=== PATIENT | male | born 2000 | race Caucasian/White ===

== ENCOUNTER 2020-09-04 16:21 | Emergency (ER) | payer OTHER, SELFPAY ==
[2020-09-04 16:23] VITALS: BP 118/94; PULSE 64; RESP 18; TEMP 36.5; O2SAT 98
--- NOTE | 2020-09-04 16:45 | ED.EYEPROB ---
HPI - Eye Problem General Chief complaint: Eye Problems Stated complaint: Possible scratched eye Time Seen by Provider: 09/04/20 16:29 History of Present Illness HPI Narrative: Patient is a 20-year-old male who presents ER with right eye pain. He was lowering some blinds when a plastic piece came off of the rope and struck him in the right eye. He has had increased pain. Blurred vision. Some tearing. He does not wear glasses or contacts. Related Data Allergies Allergy/AdvReac Type Severity Reaction Status Date / Time codeine Allergy Unknown Hallucinati Unverified 09/04/20 16:31 ng Review of Systems Eyes: Comments: Blurred vision, right eye pain with injection Neurologic: Denies syncope and Denies headache(s) PMFSH Past Medical History Medical History (Updated 09/04/20 @ 22:52 by Usman Burk MD) Healthy adult male Surgical History Surgical History (Updated 09/04/20 @ 22:52 by Usman Burk MD) H/O skin graft Exam Narrative: Exam Narrative: GENERAL: Well-appearing, well-nourished, and in no acute distress. HEAD: Normocephalic, atraumatic. EYES: PERRL and EOMI. right I viewed with fluorescein staining and magnification. There is a corneal abrasion at the 7:00 and 6 o'clock position. 7 o'clock position is about as long as a third of the cornea. No evidence of perforation of the globe. Sclera injected. Normal lids. No foreign body noted. Magnification used with ophthalmoscope. EXTREMITIES: Normal range of motion. No edema. SKIN: Warm, dry, no rash. NEURO: Alert and oriented x3. PSYCH: Normal mood and affect. Course Course Emergency Course: Educate about treatment plan. Patient verbalized understanding. Discharge home. Vital Signs Vital signs: Vital Signs Temperature 97.7 F 09/04/20 16:23 Pulse Rate 64 09/04/20 16:23 Respiratory Rate 18 09/04/20 16:23 Blood Pressure 118/94 H 09/04/20 16:23 Pulse Oximetry 98 09/04/20 16:23 Temperature 97.7 F 09/04/20 16:23 Pulse Rate 64 09/04/20 16:23 Respiratory Rate 18 09/04/20 16:23 Blood Pressure 118/94 H 09/04/20 16:23 Pulse Oximetry 98 09/04/20 16:23 Discharge Plan Discharge Clinical Impression: Corneal abrasion Patient Disposition: Home, Self-Care Condition: Stable Instructions: Antibiotic Form, Corneal Abrasion (ED) Additional Instructions: Return the ER if you have increased pain, you have new injury, you have thick drainage from your eye, you have fever over 100.4 ?F. Following up with your eye doctor would be [facility]. Prescriptions: New erythromycin 5 mg/gram (0.5 %) ointment 0.5 inch EACH EYE QID Qty: 3.5 RF: 0 Follow-up/Referrals: PHYSICIAN NOT ON STAFF,NONSTAFF [Non-Staff] -
== END 2020-09-04 17:23 | disposition home or self-care (01) ==
PROVIDERS: Emergency Provider Emergency Medicine
DX: S05.01XA Injury of conjunctiva and corneal abrasion without foreign body, right eye, initial encounter (principal); W20.8XXA Other cause of strike by thrown, projected or falling object, initial encounter
CPT/HCPCS: 99283

== ENCOUNTER 2021-08-04 09:49 | Emergency (ER) | payer OTHER, SELFPAY ==
[2021-08-04 09:57] VITALS: BP 134/67; PULSE 69; RESP 16; TEMP 36.8; O2SAT 100
--- NOTE | 2021-08-04 10:13 | ED.EXTPRO ---
HPI - Extremity Problem General Chief complaint: Extremity Problem,Nontraumatic Stated complaint: left big toe infected Time Seen by Provider: 08/04/21 10:00 Source: patient Mode of arrival: ambulatory Limitations: no limitations History of Present Illness HPI Narrative: Mr. Frazier is a 21-year-old male patient presenting to the clinic today with complaints of a possible infection to his left great toe. He thinks that he may have an ingrown toenail infection. He reports this has been ongoing for approximately 1 month. He reports that he has noticed some pus come out of the base of the toe nail. Related Data Allergies Allergy/AdvReac Type Severity Reaction Status Date / Time codeine Allergy Unknown Hallucinati Verified 08/04/21 09:51 ng Review of Systems Review of Systems: Pertinent positives per HPI. Patient denies any fever, chills, rash, headache, visual changes, dizziness, cough, runny nose, sore throat, shortness of breath, chest pain, palpitations, nausea, vomiting, diarrhea, constipation, abdominal pain, or any urinary issues. [facility] Past Medical History Medical History Healthy adult male Surgical History Surgical History H/O skin graft Comments At the time of my signature, I reviewed and agree with the nursing past medical, surgical, social, and family history. There is no relevant family history pertinent to the patient complaint. Exam Narrative: General: Well-developed, well nourished, in no apparent distress Head: Normocephalic, atraumatic. Cardio: Regular rate and rhythm, s1 and s2 normal, no murmur appreciated. Resp: Clear to auscultation bilaterally, no rhonchi, rales, wheezing or rubs. Musculoskeletal: No deformity, tender to palpation over the proximal nailbed/cuticle with redness and swelling over the immediate cuticle area and around the surrounding nailbed tissue, grossly normal range of motion, muscle strength strong and equal, peripheral pulse strong, no edema, no cyanosis, normal gait and station Course Course Emergency Course: Portions of this record may have been created with voice recognition software. Level of Care: Express Care Visit Vital Signs Vital signs: Vital Signs Temperature 36.8 C 08/04/21 09:57 Pulse Rate 69 08/04/21 09:57 Respiratory Rate 16 08/04/21 09:57 Blood Pressure 134/67 08/04/21 09:57 Pulse Oximetry 100 08/04/21 09:57 Oxygen Delivery Room Air 08/04/21 09:57 Temperature 36.8 C 08/04/21 09:57 Pulse Rate 69 08/04/21 09:57 Respiratory Rate 16 08/04/21 09:57 Blood Pressure 134/67 08/04/21 09:57 Pulse Oximetry 100 08/04/21 09:57 Oxygen Delivery Room Air 08/04/21 09:57 Vital signs reviewed MDM - Extremity (Nontraumatic) MDM Narrative Medical decision making narrative: At the time of visit patient is resting comfortably on the exam table. He has a infected paronychia to the left great toe. Offered to drain this for the patient and declined at this time. Prescription for Bactrim DS and mupirocin sent to his pharmacy. Supportive measures were discussed with the patient he voiced understanding of discharge instructions. Differential Diagnosis Differential diagnosis: Likely other (Skin infection, ingrown toenail infection, paronychia) Discharge Plan Discharge Clinical Impression: Paronychia of great toe of left foot Patient Disposition: Home, Self-Care Condition: Stable Instructions: Antibiotic Form, Paronychia (ED) Additional Instructions: Soak foot in warm water with Epsom salt 2-3 times per day May apply mupirocin cream twice daily as directed Tylenol/Motrin as needed for pain or fever Bactrim DS as prescribed With your PCP in 3 to 5 days if symptoms persist or sooner if they worsen Prescriptions: New sulfamethoxazole-trimethoprim [Bactrim DS] 800-160 mg tablet 1
== END 2021-08-04 10:21 | disposition home or self-care (01) ==
PROVIDERS: Emergency Provider Nurse Practitioner Family
DX: L03.032 Cellulitis of left toe (principal)
CPT/HCPCS: 99213; G0463